=== PATIENT | female | born 1985 | race Caucasian/White ===

== ENCOUNTER 2017-01-08 17:47 | Emergency (ER) | payer BC ==
--- NOTE | ~2017-01-08 | ER ---
PATIENT'S NAME: RAYMUNDO ROMAN [facility] AGE: 31 Y [address] ROOM: [place] [id number] LOCATION: [facility] ADMIT DATE: 01/08/2017 ER/Outpatient Report DISCHARGE DATE: 01/08/2017 FAMILY PHYSICIAN: PHYSICIAN, NO ATTENDING PHYSICIAN: Mitul Encarnacion CHIEF COMPLAINT: Left shoulder pain. HISTORY OF PRESENT ILLNESS: Ms. Roman [place], when she slammed her left shoulder into the side of the water slide on the turn. She has had excruciating pain and feels like her clavicle may be fractured. She denies any other issues and denies hitting her head or having difficulty walking or other pain. She denies numbness or tingling in her hand. She has not tried anything prior to arrival for symptom relief. She is from [place] and is planning on heading back to [place] tomorrow. PAST MEDICAL HISTORY: Documented on the record and reviewed by me. SOCIAL HISTORY: Documented on the record and reviewed by me. MEDICATIONS: Documented on the record and reviewed by me. ALLERGIES: DOCUMENTED ON THE RECORD AND REVIEWED BY ME. REVIEW OF SYSTEMS: All systems are reviewed and negative, except as noted in the HPI. PHYSICAL EXAMINATION: VITAL SIGNS: Blood pressure 123/74, pulse 76, respiratory rate 18, temperature 97.7, SpO2 is 100% on room air. GENERAL: Age-appropriate female. Upright on the exam table, in obvious pain. No respiratory distress. NEUROLOGIC: Awake and alert. GCS 15. No focal deficits. No asymmetry. HEENT: Normocephalic, atraumatic. Eyes are PERRL. Oropharynx is clear. NECK: Supple. Trachea is midline. CHEST: Heart is regular rate and rhythm with no murmurs. LUNGS: Clear to auscultation bilaterally. No rhonchi, wheezes, or rales. ABDOMEN: Soft, nontender, and nondistended. BACK: Normal to inspection and palpation. PATIENT'S NAME: RAYMUNDO ROMAN [facility] AGE: 31 Y [address] ROOM: [place] [address] LOCATION: [facility] ADMIT DATE: 01/08/2017 ER/Outpatient Report DISCHARGE DATE: 01/08/2017 FAMILY PHYSICIAN: PHYSICIAN, NO ATTENDING PHYSICIAN: Mitul Encarnacion EXTREMITIES: Unremarkable on the right upper and bilateral lower extremities. Left upper extremity is notable for marked tenderness and crepitus over the midshaft of the left clavicle. There is no skin tenting. The hand is neurovascularly intact. No appreciable bruises. Shoulder joint appears to be intact to range of motion though a significant amount of pain makes detailed exam difficult. SKIN: Grossly intact. Warm and dry. LABORATORY DATA AND X-RAYS: Plain films of the clavicle reveals superior dissociation of a tripartite midshaft clavicle fracture. IMPRESSION: Comminuted left midshaft clavicle fracture with superior displacement. EMERGENCY DEPARTMENT COURSE: The patient was seen and evaluated. She was given Bradley for pain. Ice and sling were applied after x-rays were obtained. CT of the fracture was requested. I offered Orthopedic referral. The patient prefers instead to be seen in [place] where she will go and be seen on Tuesday. She stated she would not have issues getting evaluated. Recommend ice, anti-inflammatories, and scheduled pain medication until then. No driving or alcohol intake with Bradley. All questions were answered, and the patient was discharged in good condition. MD HUGH COLEMAN/linden /[id number] d: 01/09/17 0006 t: 01/11/17 1244, OUTPATIENT REPORT
== END 2017-01-08 18:39 | disposition disaster alternative care site (69) ==
LOC: GACC 17:47
DX: S42.022A Displaced fracture of shaft of left clavicle, initial encounter for closed fracture (principal); W22.8XXA Striking against or struck by other objects, initial encounter; Y93.18 Activity, surfing, windsurfing and boogie boarding; Y92.831 Amusement park as the place of occurrence of the external cause